=== PATIENT | female | born 1975 | race Caucasian/White ===

== ENCOUNTER 2024-02-12 23:40 | Inpatient (IN) | payer BC, SELFPAY ==
[2024-02-12 17:16] VITALS: BP 120/86
[2024-02-12 17:36] LABS: % Basophils 0.3 % (0-2); % Immature Granulocytes 0.3 % (0-0.5); % Lymphocytes 3.3 % (20.5-51.1); % Monocytes 1.2 % (1.7-9.3); % Neutrophils 94.9 % (42.2-75.2); Absolute Lymphocytes 0.5 10^3/uL (1.2-3.4); Absolute Monocytes 0.2 10^3/uL (0.1-0.6); Hematocrit 38.2 % (37.0-47.0); Hemoglobin 13.8 g/dL (12.0-16.0); Mean Corp Hgb Conc. 36.1 g/dL (33.0-37.0); Mean Corpuscular Hgb 31.4 pg (27.0-31.0); Mean Platelet Volume 12.4 fL (7.4-10.4); Nucleated Red Blood Cells % 0 %; Platelet Count 228 10^3/uL (130-400); Red Blood Cell Count 4.39 10^6/uL (4.20-5.40); Red Cell Dist. Width 12.9 % (11.5-14.5); White Blood Cell Count 14.8 10^3/uL (4.8-10.8)
[2024-02-12] MEDS: ZOFRAN 4 MG IV (17:41)
[2024-02-12 17:46] LABS: HCG, Serum Qualitative Screen Negative
[2024-02-12 17:49] LABS: ALT (SGPT) 20 U/L (0-35); AST (SGOT) 27 U/L (14-36); Alkaline Phosphatase 81 U/L (38-126); Blood Urea Nitrogen 12 mg/dl (7-17); Calcium 10.3 mg/dl (8.4-10.2); Carbon Dioxide 20 mmol/L (22-30); Chloride 106 mmol/L (98-107); Glucose 140 mg/dl (70-99); Sodium 139 mmol/L (135-145); Total Bilirubin 0.7 mg/dl (0.2-1.3); Total Protein 7.5 g/dl (6.3-8.2); eGFR > 60.00
--- NOTE | 2024-02-12 18:07 | ED.GENMED ---
History of Present Illness
<Elen Santana NP - Last Filed: 02/12/24 21:50>
General
Chief Complaint: Abdominal Symptoms
Source: patient and spouse
Exam Limitations: none
Time Seen by Provider: 02/12/24 17:36
Nursing documentation reviewed up to this point in time: agreed with
History of Present Illness
History of Present Illness:
Patient to ED with complaint of n/v/d. Symptoms started this AM. Unable to eat or drink. Brought to ED by family for eval
Past History
<Elen Santana NP - Last Filed: 02/12/24 21:50>
Past History
ED Past Medical History: Psychiatric (anxiety)
ED Past Surgical History: and Orthopedic (discectomy L5-S1)
Social History
Tobacco: Smoker
Alcohol: Occasional
Drug: Marijuana
Personal:
Living: with family
Employment: Employed
Review of Systems
<Elen Santana NP - Last Filed: 02/12/24 21:50>
Review of Systems
Allergies reviewed?: Yes
All Other Systems: ROS reviewed and negative except as documented in HPI and ROS
Constitutional: Reports no symptoms
EENT: Reports no symptoms
Respiratory: Reports no symptoms
Cardiac: Reports no symptoms
ABD/GI: Reports nausea, vomiting, diarrhea and anorexia
: Reports no symptoms
Musculoskeletal: Reports no symptoms
Skin: Reports no symptoms
Neurological: Reports weakness
Psychiatric: Reports no symptoms
Phy Exam
<Elen Santana NP - Last Filed: 02/12/24 21:50>
General Physical Exam
General Presentation: moderate distress
General age: appears stated age
General Skin: warm and dry
General Habitus: normal
Pulmonary Exam
Pulmonary Exam: lungs clear and no respiratory distress
Gastrointestinal Exam
Gastrointestinal Exam: soft, no organomegaly, non distended and no cva tenderness
Palpation: generalized: Moderate tenderness
Musculoskeletal Exam
Musculoskeletal Exam: full ROM and neuro vasc intact
Skin Exam
Skin Exam: normal color, warm/dry and no rash
Psychiatric Exam
Psychiatric Exam: normal mood/affect
Course
<Elen Santana NP - Last Filed: 02/12/24 21:50>
Orders/Labs/Results
Orders:
Orders
02/12/24 17:17
Test Result ONCE
02/12/24 17:26
Complete Blood Count/With Diff Urgent
Comprehensive Metabolic Panel Urgent
HCG, Serum Qualitative Screen Urgent
Lipase Urgent
Comment: ADD ON
02/12/24 17:36
Ondansetron Injectable [Zofran] 4 mg IV NOW STA
02/12/24 17:37
Ondansetron Injectable [Zofran] 4 mg .ROUTE .STK-MED ONE
02/12/24 18:15
Add On- LAB Urgent
Tests Added?: lipase
02/12/24 18:39
Promethazine [Phenergan] 25 mg 0.9% Sodium Chloride 50 ml [Nss] 50 ml IV NOW
02/12/24 20:19
Famotidine [Pepcid] 20 mg IV NOW STA
02/12/24 21:09
CT Abd/pelvis W Iv Cont Urgent
Comment:
Reason For Exam: abdominal pain, vomiting
02/12/24 21:10
Ketorolac [Toradol] 30 mg IV NOW STA
02/12/24 21:11
Urinalysis Reflex To Culture Urgent
02/12/24 22:49
0.9% Sodium Chloride 1000 ml [Nss] 2,000 ml IV BOLUS
Diphenhydramine [Benadryl] 25 mg IV NOW STA
Pantoprazole [Protonix IV] 40 mg IV NOW STA
02/12/24 22:50
Drug Screen, Urine [Urine Drug Abuse Screen] Urgent
Abnormal Lab Results
02/12/24
17:26
WBC 14.8 H 10^3/uL
(4.8-10.8)
MCH 31.4 H pg
(27.0-31.0)
MPV 12.4 H fL
(7.4-10.4)
Absolute Neuts (auto) 14.0 H 10^3/uL
(1.4-6.5)
Absolute Lymphs (auto) 0.5 L 10^3/uL
(1.2-3.4)
Neutrophils % 94.9 H %
(42.2-75.2)
Lymphocytes % 3.3 L %
(20.5-51.1)
Monocytes % 1.2 L %
(1.7-9.3)
Carbon Dioxide 20 L mmol/L
(22-30)
Glucose 140 H mg/dl
(70-99)
Calcium 10.3 H mg/dl
(8.4-10.2)
02/12/24 17:26
02/12/24 17:26
Vital Signs
Initial and Last Documented VS:
Initial Vital Signs
Temp Pulse Resp Pulse Ox
97.7 F 80 22 95
02/12/24 17:15 02/12/24 17:15 02/12/24 17:15 02/12/24 17:15
Last Documented Vital Signs
Temp Pulse Resp BP Pulse Ox
97.7 F 75 22 134/72 99
02/12/24 17:15 02/12/24 20:32 02/12/24 20:32 02/12/24 20:32 02/12/24 20:32
Chlealt;Ayaan Ware, DO - Last Filed: 02/12/24 22:52>
Orders/Labs/Results
Orders:
Orders
02/12/24 17:17
Test Result ONCE
02/12/24 17:26
Complete Blood Count/With Diff Urgent
Comprehensive Metabolic Panel Urgent
HCG, Serum Qualitative Screen Urgent
Lipase Urgent
Comment: ADD ON
02/12/24 17:36
Ondansetron Injectable [Zofran] 4 mg IV NOW STA
02/12/24 17:37
Ondansetron Injectable [Zofran] 4 mg .ROUTE .STK-MED ONE
02/12/24 18:15
Add On- LAB Urgent
Tests Added?: lipase
02/12/24 18:39
Promethazine [Phenergan] 25 mg 0.9% Sodium Chloride 50 ml [Nss] 50 ml IV NOW
02/12/24 20:19
Famotidine [Pepcid] 20 mg IV NOW STA
02/12/24 21:09
CT Abd/pelvis W Iv Cont Urgent
Comment:
Reason For Exam: abdominal pain, vomiting
02/12/24 21:10
Ketorolac [Toradol] 30 mg IV NOW STA
02/12/24 21:11
Urinalysis Reflex To Culture Urgent
02/12/24 22:49
0.9% Sodium Chloride 1000 ml [Nss] 2,000 ml IV BOLUS
Diphenhydramine [Benadryl] 25 mg IV NOW STA
Pantoprazole [Protonix IV] 40 mg IV NOW STA
02/12/24 22:50
Drug Screen, Urine [Urine Drug Abuse Screen] Urgent
Abnormal Lab Results
02/12/24
17:26
WBC 14.8 H 10^3/uL
(4.8-10.8)
MCH 31.4 H pg
(27.0-31.0)
MPV 12.4 H fL
(7.4-10.4)
Absolute Neuts (auto) 14.0 H 10^3/uL
(1.4-6.5)
Absolute Lymphs (auto) 0.5 L 10^3/uL
(1.2-3.4)
Neutrophils % 94.9 H %
(42.2-75.2)
Lymphocytes % 3.3 L %
(20.5-51.1)
Monocytes % 1.2 L %
(1.7-9.3)
Carbon Dioxide 20 L mmol/L
(22-30)
Glucose 140 H mg/dl
(70-99)
Calcium 10.3 H mg/dl
(8.4-10.2)
02/12/24 17:26
02/12/24 17:26
Vital Signs
Initial and Last Documented VS:
Initial Vital Signs
Temp Pulse Resp Pulse Ox
97.7 F 80 22 95
02/12/24 17:15 02/12/24 17:15 02/12/24 17:15 02/12/24 17:15
Last Documented Vital Signs
Temp Pulse Resp BP Pulse Ox
97.7 F 75 22 134/72 99
02/12/24 17:15 02/12/24 20:32 02/12/24 20:32 02/12/24 20:32 02/12/24 20:32
<Ayaan Ware DO - Last Filed: 02/12/24 22:52>
*Critical Care Note
Total Time (30-74mins, 75-104mins- exclusive of procedures): Not Applicable
<Elen Santana NP - Last Filed: 02/12/24 21:50>
Update Note
Update Note:
Patient to ED wth complaint of n/v/abdominal pain since this AM. Afebrile. Given IVF and zofran on arrival without improvement. IV phenergan given and vomiting has resolved. Still complains of mid abdominal pain. CT pending.
ED Attending Note
<Elen Santana NP - Last Filed: 02/12/24 21:50>
-
Portions of this chart may have been created with voice recognition software.� Occasional wrong word or��sound alike� substitutions may have occurred due to the inherent limitations of voice recognition software.
<Ayaan Ware DO - Last Filed: 02/12/24 22:52>
ED Attending Note
Patient seen and examined by attending physician: Yes
I performed the substantive portion of visit, reviewed & personally made and approve the management plan that is documented in note by myself or ZENAIDA.: Yes
ED Attending Note:
seen with pot reliner agree with a/p
mild diffsue pain
n/v depsite muli doses of antiemeitcs
Discharge Plan
Departure
Patient Disposition: Admit
Date of Disposition: 02/12/24
Time of Disposition: 22:51
Admit to: Med/Surg
Presentation/result/management discussed w/ accepting MD/DO: Hospitalist
Patient with high blood pressure during this ER visit?: No
Condition: Fair
Covid-19: Not Applicable
Discharge Problem:
Intractable cyclical vomiting with nausea
Prescriptions:
No Action
cyclobenzaprine 10 mg tablet
10 mg PO TID PRN (Reason: back pain, spasm) Qty: 30 0RF
prednisone 50 mg tablet
50 mg PO DAILY Qty: 5 0RF
hydrocodone-acetaminophen 5-325 mg tablet
1 tab feeding tube Q6H PRN (Reason: pain) Qty: 10 0RF
Referrals:
Mary Suarez DO [Family Provider] -
Interventions
Interventions:
*Risk Screen - Suicide Last Done: 02/12/24 17:44
*General Assessment Last Done: 02/12/24 17:44
*Neglect/Abuse Screening Last Done: 02/12/24 17:44
*ED COVID-19 Vaccine History Last Done: 02/12/24 17:44
WC-Kjqthx-Qciboudwvy Assessment Last Done: 02/12/24 17:44
Discharge Date and Time
Print Language: PARAGUAYAN
[2024-02-12 18:52] LABS: Lipase 45 U/L (23-300)
[2024-02-12] MEDS: PHENERGAN 51 MG IV (19:05)
[2024-02-12] MEDS: PEPCID 20 MG IV (20:29)
[2024-02-12 20:32] VITALS: BP 134/72
[2024-02-12] MEDS: TORADOL 30 MG IV (21:15)
[2024-02-12] MEDS: PROTONIX IV 40 MG IV (22:57)
[2024-02-12] MEDS: BENADRYL 25 MG IV (22:57)
[2024-02-12] MEDS: NSS 2000 IV (22:57)
--- NOTE | 2024-02-12 22:59 | HPS.HSE ---
Family Physician
-
Family Physician: Mary Suarez
Chief Complaint
-
Nausea, vomiting, diarrhea
History of Present Illness
48-year-old female complaining of nausea, vomiting, diarrhea that started this a.m. with inability to drink. She does admit to marijuana use daily vaping. She also reports she has had hyperemesis since she was with her last child 12 years
ago. She reports she gets it every few months feels it is due to her vagus nerve although has never seen a pipe line inspector. She reports nausea vomiting and loose pudding-like stool today. She denies fever, chills, sick contacts, no recent
travel, no antibiotics, chest pain, palpitations, shortness breath, cough, abdominal pain, urinary symptoms.
Past medical history anxiety, active smoker vapes nicotine and vapes marijuana daily, section x2, discectomy L5-S1
Medical History
Past Medical History
Past Medical History: Reports Other
Additional Past Medical History:
Chronic nausea vomiting diarrhea occurs every 3 months over the past 12 years since hyperemesis with her last child
anxiety
active smoker vapes nicotine
vapes marijuana daily
section x2
discectomy L5-S1
Past Surgical History: Reports (X 2)
Social History
Tobacco: Vaping
Alcohol: None
Drug: Marijuana
Living: With Family
Family History
Family History: Not pertinent
Allergies / Home Medications
Allergies reflects when Allergies were last updated in [employer].
Home Medications with original date entered in [employer]
Allergy/Medication List:
Allergies
Allergy/AdvReac Type Severity Reaction Status Date / Time
hydromorphone [From Dilaudid] Allergy Rash Verified 10/28/22 14:28
Sulfa (Sulfonamide Allergy Unknown Verified 10/28/22 14:28
Antibiotics)
Home Medications
Lunesta 02/12/24
alprazolam 0.5 mg tablet (Xanax) 0.5 mg PO BID PRN anxiety 02/12/24
paroxetine HCl 10 mg tablet 10 mg PO DAILY 02/12/24
Review of Systems
-
History Source: Patient
A 12 point ROS was completed and negative except as noted: Yes
Constitutional: Denies Fever or Chills
EENT: Denies Tearing or Mouth Swelling
Respiratory: Denies Cough or Trouble Breathing
Cardiac: Denies Chest Pain, Diaphoresis, Palpitations or Syncope
Abdomen/GI: Reports Nausea, Vomiting and Diarrhea (Loose pudding-like brown stool); Denies Abdominal Pain, Constipated, Bloody Stools or Black Stools
: Denies Dysuria, Frequency, Flank Pain, Incontinence, Difficulty Voiding, Urgency or Bleeding
Musculoskeletal: Denies Joint Pain, Joint Swelling or Muscle Pain
Skin: Denies Itching or Rash
Neurological: Denies Dizzy, Headache or Weakness
Hematologic/Lymphatic: Reports No Symptoms
Psych: Reports Calm
Physical Exam
Vital Signs
Vital Signs
Temp Pulse Resp BP Pulse Ox
97.7 F 75 22 134/72 99
02/12/24 17:15 02/12/24 20:32 02/12/24 20:32 02/12/24 20:32 02/12/24 20:32
Physical Exam
General: Conversant and Other (Dry heaving on exam); No Fever or Chills
HEENT: NormoCephalic, Anicteric, PERRLA, [place] Conjunctivae, No Ptosis and Other (Dry oral mucosa)
Respiratory: Clear; No Wheezes, Rales or Rhonchi
Cardiac: S1/S2 and Regular Rhythm; No Murmur, Rub, Gallop or Peripheral Edema
Breast: Deferred by me
GI: Soft, Non Tender, Non Distended, Normal Bowel Sounds and No Hepatosplenomegaly
Genito-urinary: Deferred by me
Musculoskeletal: No Clubbing, No Cyanosis and No Edema
Skin: Warm and Dry; No Rash or Jaundice
Neuro: AO x 3, No Motor Deficits, Nonfocal/grossly intact and No Sensory Deficits; No DTR's Intact & Symmetrical, Slurred Speech, Facial Droop or Tremors
Psych: Calm
Laboratory Results
-
02/12/24 17:26
02/12/24 17:
Laboratory Results
Total Bilirubin 0.7 mg/dl (0.2-1.3) 02/12/24 17:
AST 27 U/L (14-36) 02/12/24 17:
ALT 20 U/L (0-35) 02/12/24 17:
Alkaline Phosphatase 81 U/L (38-126) 02/12/24 17:
Lipase 45 U/L (23-300) 02/12/24 17:
Data Reviewed
-
CT Scan: Report Reviewed by me
Lab Data: Labs Reviewed by me
Impression/Plan
-
Impression/plan:
Admit to MedSurg
#Acute colitis concern for viral versus infectious
-WBC 14.8, afebrile, normotensive
-Check stool cultures, stool WBC ESR CRP
-Consult GI
-Check UDS
-IV NSS
-IV Pepcid every 12 hours
-IV Phenergan as needed
- IV Zofran as needed
IV Toradol given in ER
IV Benadryl given in ER
-IV Levaquin, IV Flagyl
-Follow CBC, CMP
CT abdomen pelvis with IV contrast: Mild pancolitis new. (Diffuse wall
thickening of the colon concerning for colitis) simple left ovarian cyst
#Hx marijuana use-vapes daily
#History of hyperemesis secondary to daily cannabis December 2022
#Hx nicotine abuse-Vapes daily
-Cessation advised
#Hx anxiety
-Continue Xanax 0.5 mg p.o. twice daily as needed
-Continue paroxetine 10 mg daily
#Discectomy L5-S1
#History of hyperemesis with 12 years ago
DVT prophylaxis
SCDs
Full code
[2024-02-12 23:11] LABS: Urine Albumin Trace (Neg - Trace); Urine Bilirubin Negative (Negative); Urine Character Clear (Clear); Urine Color Yellow; Urine Glucose Negative (Negative); Urine Ketone 3+ (Negative); Urine Leukocyte Negative (Negative); Urine Nitrite Negative (Negative); Urine Occult Blood Negative (Negative); Urine Urobilinogen Negative (Neg - 1+)
--- NOTE | 2024-02-12 23:11 | W.PN.UPDATE ---
Addendum entered and electronically signed by Brant Kay MD 02/13/24 13:27:
Correction:
- to check stool Cx, <del>Rota</del> <del>virus,</del> Noro virus
Original Note:
Update Note
Progress Note Update
This note serves as an addendum to the H&P by information lead ZENAIDA Ayla MARIE
HPI
48F current smoker and daily marijuanna use, HX Anxiety , HX Hyperemesiscannbis syndrome seen at ER for evalauation of N/V/D
Acute nausea and vomiting
- started this AM
- unable to tolerate any POs
- stop smoking marijuana today - last smike
- had loose BMs
- denied recent ABx
- denied contact expose
- no recent travel
- denied sea food ingestion
- no prior HX IBD
Reviewed VS: unremarkable
PE
Gen: curling up and answering questions without opening eyes
HEENT: anicteric
Neck: supple
Lungs: CTA
Cor: RRR S1 s2
Abdomen: soft , NT, NG
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
MS: no edema
Psych: limited due to selectively answering
Data
WCC 14.8
Unremarkable CMP
BG 140
Ca 10.3
ESR and CRP pending
UA sent
UDS sent , pending report
CT of the abdomen and pelvis with IV contrast.
Findings suggesting mild pancolitis. New Simple left ovarian cyst. New
Last hospitalist admission:
ASSESSMENT & PLAN
Acute gastro enteritis like clinical picture
CT suggest pancolitis wit leucocytosis
DDX: Infective, inflammatory vs. but less likely Hyperemesis cannabinoid syndrome
- NEG HCG
- stool Cx, Rota virus
- ESR, CRP
- clear and IVF
- Empiric IV LVQ and IV flagyl
- GI consult
Daily marijuana use
HX Anxiety
- pending Rx reconciliation
DVT Px: SCD
Code: Full
IP MS
[2024-02-12 23:12] LABS: Erythrocyte Sed Rate 11 mm/hour (0-20)
[2024-02-12 23:28] LABS: Amphetamines Negative (Negative); Barbiturates Negative (Negative); Benzodiazepines Negative (Negative); Buprenorphine Negative (Negative); Cocaine Negative (Negative); Marijuana Positive (Negative); Methadone Negative (Negative); Methamphetamines Negative (Negative); Opiates Negative (Negative); Phencyclidine Negative (Negative); Tricyclic Antidepressants Negative (Negative)
[2024-02-12 23:29] LABS: C-Reactive Protein < 5.00 mg/L (0.0-10.00)
[2024-02-13] VITALS (7 sets, daily range): BP systolic 92–133; BP diastolic 59–75; PULSE 83; O2SAT 97; BMI 26.2; BMI 26.4
[2024-02-13] MEDS: FLAGYL 500 MG 100 IV ×3 (00:08→18:00)
[2024-02-13] MEDS: ATIVAN 0.5 MG IV (00:08)
[2024-02-13] MEDS: NSS (PRESERVATIVE FREE) 0.25 ML IV (00:09)
[2024-02-13] MEDS: NSS 1000 IV ×3 (01:21→23:10)
[2024-02-13] MEDS: LEVAQUIN 100 IV ×2 (01:21→23:10)
[2024-02-13 05:33] LABS: % Basophils 0.2 % (0-2); % Immature Granulocytes 0.6 % (0-0.5); % Lymphocytes 5.3 % (20.5-51.1); % Monocytes 4.8 % (1.7-9.3); % Neutrophils 89.1 % (42.2-75.2); Absolute Immature Granulocytes 0.1 10^3/uL (0-0.05); Absolute Lymphocytes 0.6 10^3/uL (1.2-3.4); Absolute Monocytes 0.6 10^3/uL (0.1-0.6); Absolute Neutrophils 10.7 10^3/uL (1.4-6.5); Hematocrit 32.3 % (37.0-47.0); Hemoglobin 11.2 g/dL (12.0-16.0); Mean Corp Hgb Conc. 34.7 g/dL (33.0-37.0); Mean Corpuscular Hgb 30.7 pg (27.0-31.0); Mean Corpuscular Volume 88.5 fL (81.0-99.0); Mean Platelet Volume 12.6 fL (7.4-10.4); Nucleated Red Blood Cells % 0 %; Platelet Count 164 10^3/uL (130-400); Red Blood Cell Count 3.65 10^6/uL (4.20-5.40); Red Cell Dist. Width 13.5 % (11.5-14.5)
[2024-02-13 06:06] LABS: ALT (SGPT) 15 U/L (0-35); AST (SGOT) 19 U/L (14-36); Albumin 3.7 g/dl (3.5-5.0); Alkaline Phosphatase 55 U/L (38-126); Blood Urea Nitrogen 10 mg/dl (7-17); Calcium 8.7 mg/dl (8.4-10.2); Carbon Dioxide 21 mmol/L (22-30); Chloride 111 mmol/L (98-107); Estimated Creatinine Clearance 78 ml/min; Glucose 101 mg/dl (70-99); Sodium 138 mmol/L (135-145); Total Bilirubin 0.5 mg/dl (0.2-1.3); eGFR > 60.00
--- NOTE | 2024-02-13 08:06 | CON.GI ---
Addendum entered and electronically signed by Susan Beach DO 02/13/24 16:49:
Patient seen and examined independently of CLARICE. I agree with her note with my additions below
Ebonie is a 48-year-old female with intermittent chronic episodes of nausea and vomiting requiring hospitalization and ER visits for years. Mostly in [place] where she previously lived. Also with regular marijuana use who comes in with a
similar episode but this time found to have mild diffuse colonic wall thickening despite lack of oral contrast. Otherwise with IV contrast the pancreas and gallbladder and liver. Normal with no lymphadenopathy throughout. Bowel loops are normal
in caliber.
Patient states she feels normal in between episodes. This 1 started yesterday where she felt the urge to move her bowels with significant discomfort sat on the toilet had a semiformed bowel movement then her classic epigastric pain and multiple
episodes of retching and vomiting. She gets a wave of heat and sweats during the episodes. She has some burning in her throat from the multiple episodes of vomiting but has not vomited since before admission. Currently she feels very dry and has
epigastric discomfort. On admission she has a leukocytosis of 14,000, hemoglobin 13, platelets 228. BUN 12, creatinine 0.8, negative test, lipase normal at 45
Patient states she had an endoscopy and colonoscopy in the distant past for workup of these episodes. States she did a Cologuard recently because she did not want to repeat the colonoscopy. She is not on any PPIs. Takes Paxil and Lunesta.
# Nausea, vomiting, abdominal pain with no significant diarrhea but mild pancolitis on imaging
-- More likely hyperemesis cannabis versus cyclical vomiting syndrome
-- IV hydration, antiemetics, needs outpatient follow-up
-- Discussed cessation of marijuana
--- Stool studies if she has any diarrhea, twice daily PPI for right now
Original Note:
Consultation
-
Date/Time Consultation Requested: 02/12/24 2310
Date/Time Consultation Performed: 02/13/24 0800
Requesting Provider: CLARICE Akers
Performing Provider: CLARICE Cherry, Susan Beach,
Reason for Consultation: nausea/vomiting/diarrhea, pancolitis
Medical History
Chief Complaint / HPI
History of Present Illness:
Pt is a 48yo with hx hyperemesis with childbirth requiring Zofran pump, periodic nausea and vomiting episodes requiring hospital admission for years(mostly at [facility] where she lived in past), daily marijuana use with no improvement
with period of abstinence in past, anxiety, prior , family hx colon/stomach CA in father with onset of intractable vomiting/abdominal pain and diarrhea. This episode is different from prior episodes with prolonged vomiting and some change
in stool pattern with some pudding like stools. On admission she was noted with pancolitis on Ct along with elevated WBC 14,800 and stable hbg 13.8 with some drop to 11.2 after admission. Denies any recent travel or sick contrast. She was seen by
PCP for possible UTI with abd pressure but did not start abx prior to admission. She recall EGD/colonoscopy but was non specific for prior other testing in [facility] other than symptomatic management during hospital admission.
Pt currently admits to odynophagia with sense of burning with recurrent vomiting. She has chronic GERD but on no medications. She had about 20 + episodes of vomiting since yesterday AM last episode about 8 PM 02/11. She also admits to diffuse
abdominal burning and pain. Pt also admits to 20 + lb wt loss in last 6 months with exercise. Some change in bowel habit with loose stools but no blood or black in stools. Last colonoscopy 4-5 years ago recalls as normal, EGD years ago with
[facility] in [place].
Past Medical History
Past Medical History: Psychiatric (anxiety) and Other (hyperemesis with childbirth, marijuana use, tobacco abuse )
Past Surgical History: and Orthopedic (discectomy L5-S1)
Social History
Tobacco: Former Smoker
Alcohol: Occasional (3-4 drinks per week)
Drug: Marijuana
Personal:
Living: With Family
Employment: Employed
Family History
Family History: Other (father with multiple GI cancers including colon and stomach CA )
Allergies / Home Medications
Allergy/AdvReac Type Severity Reaction Status Date / Time
hydromorphone [From Dilaudid] Allergy Rash Verified 10/28/22 14:28
Sulfa (Sulfonamide Allergy Unknown Verified 10/28/22 14:28
Antibiotics)
�Medication �Instructions �Recorded
Lunesta 02/12/24
alprazolam 0.5 mg tablet (Xanax) 0.5 mg PO BID PRN anxiety 02/12/24
paroxetine HCl 10 mg tablet 10 mg PO DAILY 02/12/24
Review of Systems
-
History Source: Patient
Constitutional: Reports Weight Loss (20 lb last 6 months with exercise )
EENT: Reports No Symptoms
Respiratory: Reports No Symptoms
Cardiac: Reports Chest Pain
Abdomen/GI: Reports Abdominal Pain, Nausea, Vomiting and Diarrhea
: Reports Other (pressure)
Musculoskeletal: Reports No Symptoms
Skin: Reports No Symptoms
Neurological: Reports Weakness
Endocrine: Reports No Symptoms
Hematologic/Lymphatic: Reports No Symptoms
Vital Signs
Temp Pulse Resp BP Pulse Ox
99.7 F 91 14 109/64 100
02/13/24 05:09 02/13/24 05:09 02/13/24 05:09 02/13/24 05:09 02/13/24 05:09
Physical Exam
Exam
General: Well Developed and Well Nourished
HEENT: Normocephalic and Anicteric
Respiratory: Clear
Cardiac: Regular Rhythm
GI: Soft, Non Distended and Tender (diffuse )
Musculoskeletal: No Clubbing and No Cyanosis
Skin: Warm and Dry
Neuro: Awake, Alert and AO x 3
Psych: Calm
Results
WBC 12.0 10^3/uL (4.8-10.8) H 02/13/24 05:06
Hgb 11.2 g/dL (12.0-16.0) L 02/13/24 05:06
Hct 32.3 % (37.0-47.0) L 02/13/24 05:06
MCV 88.5 fL (81.0-99.0) 02/13/24 05:06
Plt Count 164 10^3/uL (130-400) D 02/13/24 05:06
Absolute Neuts (auto) 10.7 10^3/uL (1.4-6.5) H 02/13/24 05:06
Sodium 138 mmol/L (135-145) 02/13/24 05:06
Potassium 4.0 mmol/L (3.5-5.1) 02/13/24 05:06
Chloride 111 mmol/L (98-107) H 02/13/24 05:06
Carbon Dioxide 21 mmol/L (22-30) L 02/13/24 05:06
BUN 10 mg/dl (7-17) 02/13/24 05:06
Creatinine 0.8 mg/dL (0.6-1.0) 02/13/24 05:06
Calcium 8.7 mg/dl (8.4-10.2) D 02/13/24 05:06
Total Bilirubin 0.5 mg/dl (0.2-1.3) 02/13/24 05:06
AST 19 U/L (14-36) 02/13/24 05:06
ALT 15 U/L (0-35) 02/13/24 05:06
Alkaline Phosphatase 55 U/L (38-126) 02/13/24 05:06
Lipase 45 U/L (23-300) 02/12/24 17:26
Diagnostic Image Results: 02/12/24 CT A/p with IV contrast-- Findings suggesting mild pancolitis. New Simple left ovarian cyst. New
Prior GI Procedures:
EGD: years ago Jared recalls as normal
Colonoscopy: 4-5 years ago recalls as normal
Assessment / Plan
-
Pt is a 48yo with hx hyperemesis with childbirth requiring Zofran pump, periodic nausea and vomiting episodes requiring hospital admission for years(mostly at [facility] where she lived in past), daily marijuana use with no improvement
with period of abstinence in past, anxiety, prior , family hx colon/stomach CA in father with onset of intractable vomiting/abdominal pain and diarrhea. This episode is different from prior episodes with prolonged vomiting and some change
in stool pattern with some pudding like stools. On admission she was noted with pancolitis on Ct along with elevated WBC 14,800 and stable hbg 13.8 with some drop after admission. She recall EGD/colonoscopy but was non specific for prior other
testing in [facility] other than symptomatic management during hospital admission. Pt also admits to recent wt loss some intentional loss 20 lbs. Last colonoscopy 4-5 years ago recalls as normal, EGD years ago with Dr. Burr in [place].
-acute on chronic intractable nausea and vomiting
-pancolitis on CT
-leukocytosis
-anemia after admission
-daily Marijuana use
-recent wt loss
other medical problems:
-hyperemesis with with need for Zofran pump
-anxiety
-
-family hx colon/stomach CA in father
PLAN:
etiology of intractable nausea and vomiting related to infectious etiology with current noted pancolitis, Cannibis use, anxiety vs other
cont abx with current pancolitis
check stool studies and norovirus
obtain prior records from [facility]
trend hbg and WBC's
add ESR, CRP for baseline though may be elevated with infectious process, check fecal sunny
trial clear diet as no vomiting last 10+ hours
OP followup - sent message to office to arrange
consider repeat OP colonoscopy with pancolitis as due for follow up with family hx colon CA-- may need sutab as pt states she only had enema prep in past as intolerant of any liquid preps
discussed another trial of Marijuana abstinence with recurrent symptoms
will follow
-
-
Thank you for consultation and allowing me to participate in the patient's care. Please call the concrete journeyman GI physician during the after hours with any questions or concerns.
[2024-02-13] MEDS: PEPCID 20 MG IV ×2 (08:49→20:00)
[2024-02-13] MEDS: NSS (PRESERVATIVE FREE) 8 ML IV ×2 (08:49→19:58)
[2024-02-13] MEDS: PAXIL 30 MG PO (08:50)
--- NOTE | 2024-02-13 12:06 | W.PN.HOSP.TC ---
Today's Communication/Plan
-
Monitor vital signs and see plan
Monitor on clears
Stool studies
Check norovirus
Monitor leukocytosis
Continue with antibiotics for now
Assessment / Plan
Assessment / Plan
General: Conversant and Other (Dry heaving on exam); No Fever or Chills
HEENT: NormoCephalic, Anicteric, PERRLA, [place] Conjunctivae, No Ptosis and Other (Dry oral mucosa)
Respiratory: Clear; No Wheezes
Cardiac: S1/S2 and Regular Rhythm
GI: Soft, Non Tender, Non Distended, Normal Bowel Sounds
Genito-urinary: no hall
Musculoskeletal: No Edema
Neuro: AO x 3, No Motor Deficits, Nonfocal/grossly intact
Psych: Calm
Acute colitis concern for viral versus infectious
-Check stool cultures, stool WBC ESR CRP. Check norovirus
GI following
UDS with + THC
-Check UDS
-IV NSS
-IV Pepcid every 12 hours
-IV Phenergan as needed
check ekg for Qtc
cw lev and flagyl for now
CT abdomen pelvis with IV contrast: Mild pancolitis new. (Diffuse wall
thickening of the colon concerning for colitis) simple left ovarian cyst
#Hx marijuana use-vapes daily
#History of hyperemesis secondary to daily cannabis December 2022
#Hx nicotine abuse-Vapes daily
-Cessation advised
#Hx anxiety
-Continue Xanax 0.5 mg p.o. twice daily as needed
-Continue paroxetine 10 mg daily
#Discectomy L5-S1
#History of hyperemesis with 12 years ago
DVT prophylaxis
SCDs
Full code
Anticipated Discharge: 24 - 48 hours
Subjective/Interval History
-
Date of Service: February 13, 2024
Has abdominal discomfort
Objective Data
-
Labs:
Laboratory Results
02/13/24
05:06
WBC 12.0 H
Hgb 11.2 L
Hct 32.3 L
Plt Count 164 D
Sodium 138
Potassium 4.0
Chloride 111 H
Carbon Dioxide 21 L
BUN 10
Creatinine 0.8
Glucose 101 H
Calcium 8.7 D
Total Bilirubin 0.5
AST 19
ALT 15
Alkaline Phosphatase 55
Vital Signs:
Vital Signs
Temp Pulse Resp BP Pulse Ox
99.7 F 91 14 109/64 100
02/13/24 05:09 02/13/24 05:09 02/13/24 05:09 02/13/24 05:09 02/13/24 09:56
[2024-02-13 12:53] LABS: Erythrocyte Sed Rate 11 mm/hour (0-20)
[2024-02-13] MEDS: NSS IV (16:16)
[2024-02-13] MEDS: PROTONIX IV 40 MG IV (20:09)
[2024-02-13] MEDS: NSS (PRESERVATIVE FREE) 10 ML IV (20:09)
[2024-02-13] MEDS: ZOFRAN ODT (ORALLY DISINTEGRATING) PO (21:20)
[2024-02-13] MEDS: PHENERGAN 50.5 MG IV (21:35)
[2024-02-13] MEDS: ZOFRAN ODT (ORALLY DISINTEGRATING) 4 MG PO (23:12)
--- NOTE | 2024-02-14 00:04 | PTCARENOTE ---
Upon routine rounds patient drowsy but arousable to voice. Dinner tray with clear liquids eaten 100%. IVF as ordered. HRR, breath sounds CTA, Abdomen with hypo BS x 4, no BM so far this shift. Around 21:00 Patient started with nausea then
violent retching. IV Phenergan as ordered with some relief but patient continued with some dry heaves and nausea. Zofran as per order. Patient currently sleeping quietly. IVF and IV Abx as ordered.
[2024-02-14] MEDS: FLAGYL 500 MG 100 IV ×2 (00:40→07:43)
[2024-02-14 06:14] VITALS: BMI 24.2
[2024-02-14] MEDS: NSS 1000 IV (06:17)
[2024-02-14 07:10] VITALS: BP 126/66
[2024-02-14] MEDS: PAXIL 30 MG PO (07:42)
[2024-02-14] MEDS: PEPCID 20 MG IV (07:43)
[2024-02-14] MEDS: NSS (PRESERVATIVE FREE) 8 ML IV (07:43)
[2024-02-14] MEDS: NSS (PRESERVATIVE FREE) 10 ML IV (07:43)
[2024-02-14] MEDS: PROTONIX IV 40 MG IV (07:43)
[2024-02-14 08:00] LABS: % Basophils 0.4 % (0-2); % Immature Granulocytes 0.6 % (0-0.5); % Lymphocytes 7.1 % (20.5-51.1); % Monocytes 4.3 % (1.7-9.3); % Neutrophils 87.6 % (42.2-75.2); Absolute Immature Granulocytes 0.1 10^3/uL (0-0.05); Absolute Lymphocytes 0.6 10^3/uL (1.2-3.4); Absolute Monocytes 0.3 10^3/uL (0.1-0.6); Absolute Neutrophils 6.9 10^3/uL (1.4-6.5); Hematocrit 32.4 % (37.0-47.0); Hemoglobin 11.2 g/dL (12.0-16.0); Mean Corp Hgb Conc. 34.6 g/dL (33.0-37.0); Mean Corpuscular Hgb 30.6 pg (27.0-31.0); Mean Corpuscular Volume 88.5 fL (81.0-99.0); Mean Platelet Volume 12.9 fL (7.4-10.4); Nucleated Red Blood Cells % 0 %; Platelet Count 134 10^3/uL (130-400); Red Blood Cell Count 3.66 10^6/uL (4.20-5.40); Red Cell Dist. Width 13.4 % (11.5-14.5); White Blood Cell Count 7.9 10^3/uL (4.8-10.8)
[2024-02-14 08:23] LABS: ALT (SGPT) 16 U/L (0-35); AST (SGOT) 21 U/L (14-36); Albumin 3.4 g/dl (3.5-5.0); Alkaline Phosphatase 54 U/L (38-126); Blood Urea Nitrogen 9 mg/dl (7-17); Calcium 8.6 mg/dl (8.4-10.2); Carbon Dioxide 21 mmol/L (22-30); Chloride 111 mmol/L (98-107); Estimated Creatinine Clearance 89 ml/min; Glucose 100 mg/dl (70-99); Potassium 3.6 mmol/L (3.5-5.1); Sodium 137 mmol/L (135-145); Total Bilirubin 0.5 mg/dl (0.2-1.3); Total Protein 5.4 g/dl (6.3-8.2); eGFR > 60.00
--- NOTE | 2024-02-14 11:34 | CM ---
Patient seen bedside.
Patient lives with spouse and children.
patient has a 2 story home.
No assistive devices.
Independent prior to admission.
Patient drives.
No home care needs anticiapted.
PCP; Dr Suarez
Pharmacy: [facility]
Plan: home no needs anticipated.
--- NOTE | 2024-02-14 14:37 | W.DS.TRANS ---
DC Summary - [employer]
-
Discharge Instructions:
Discharge Diagnosis/Procedures Nausea and vomiting
Diet Regular
Instructions:
Stand-Alone Forms:
Changes to Home Medications: No
Discharge Medications:
DC Medications w/original date entered in [employer]
alprazolam 0.5 mg tablet (Xanax) 0.5 mg PO BID PRN anxiety 02/12/24
eszopiclone 3 mg tablet (Lunesta) 3 mg PO HSPRN PRN sleep 02/12/24
paroxetine HCl 10 mg tablet 30 mg PO DAILY 02/12/24
pantoprazole 40 mg tablet,delayed release (Protonix) 40 mg PO DAILY #30 tabs 02/14/24
Home Medication Changes
Pending Results: No
[2024-02-14 15:15] VITALS: BP 122/64
--- NOTE | 2024-02-14 15:30 | PTCARENOTE ---
Pt still w/ poor appetite but tolerating phillip kathy and crackers. Dry heaves this morning that was relieved by hot shower. No vomiting. No diarrhea in 2 days.
== END 2024-02-14 16:40 | disposition home or self-care (01) | DRG 392 ==
LOC: 4 WEST ACU 23:40
PROVIDERS: Clinical Nurse Specialist Family Health; Emergency Medicine; Nurse Practitioner; ADMITTING PHYSICIAN Internal Medicine; ATTENDING PHYSICIAN Internal Medicine; CONSULT PHYSICIAN Internal Medicine; EMERGENCY PHYSICIAN Emergency Medicine; FAMILY PHYSICIAN Family Medicine
DX: R11.2 Nausea with vomiting, unspecified (principal); K21.9 Gastro-esophageal reflux disease without esophagitis; F41.9 Anxiety disorder, unspecified; F12.90 Cannabis use, unspecified, uncomplicated; F17.290 Nicotine dependence, other tobacco product, uncomplicated; R93.5 Abnormal findings on diagnostic imaging of other abdominal regions, including retroperitoneum; R10.9 Unspecified abdominal pain; Z80.0 Family history of malignant neoplasm of digestive organs
CPT/HCPCS: 74177; 80053; 80306; 81003; 83690; 84703; 85025; 85652; 86140; 93005; 96361; 96365; 96375; 97166; 99285; 99406; Q9967

== ENCOUNTER 2024-07-27 17:58 | Inpatient (IN) | payer BC, SELFPAY ==
[2024-07-27 13:19] VITALS: BP 111/65
--- NOTE | 2024-07-27 13:40 | ED.GENMED ---
History of Present Illness
General
Chief Complaint: Abdominal Symptoms
Source: patient and records
Exam Limitations: none
Time Seen by Provider: 07/27/24 13:25
History of Present Illness
History of Present Illness:
48yoF with a history of cyclic vomiting and marijuana use presenting with her for evaluation of vomiting. Symptoms have been ongoing for about 4 days. She is also having some diarrhea and abdominal pain. She also reports having difficulty
controlling her body temperature. She denies any known trigger to her symptoms. Specifically, she denies any suspicious food intake or sick contacts. Patient has similar episodes every few months. She was admitted in February 2024 for similar symptoms.
Per gastroenterology notes, symptoms were thought to be from hyperemesis cannabis vs. cyclic vomiting syndrome. Patient states she knows that her symptoms are not from marijuana as she has not used any in the past week. No hematochezia.
Past History
Past History
ED Past Medical History: Psychiatric (anxiety)
ED Past Surgical History: and Orthopedic (discectomy L5-S1)
Social History
Tobacco: Smoker
Alcohol: Occasional
Drug: Marijuana
Personal:
Living: with family
Employment: Employed
Phy Exam
Physical Exam
Physical Exam:
Violently retching on exam
General Physical Exam
General Presentation: well appearing and moderate distress
General Skin: warm and dry
General Habitus: normal
General Mental: alert
ENT Exam
ENT Exam: normocephalic
Pulmonary Exam
Pulmonary Exam: lungs clear, no respiratory distress, no rales and no crackles
Gastrointestinal Exam
Gastrointestinal Exam: soft, non distended and other (+Mild generalized tenderness noted. Abdomen soft, non-distended. No rebound or guarding. )
Neurological Exam
Neurological Exam: alert
Stephanie Coma Scale
Eye Opening: Spontaneous
Verbal Response: Oriented
Motor Response: Obeys Commands
GCS Total Score: 15
Skin Exam
Skin Exam: normal color and warm/dry
Course
Orders/Labs/Results
Orders:
Orders
07/27/24 13:30
0.9% Sodium Chloride 1000 ml [Nss] 1,000 ml IV BOLUS
Famotidine [Pepcid] 20 mg IV NOW STA
Haloperidol Lactate [Haldol] 5 mg IM NOW STA
07/27/24 13:31
Electrocardiogram (*1) Urgent
Reason for Study: Abdominal Pain
EKG- Treatment ONCE
Test Result ONCE
07/27/24 13:57
Complete Blood Count/With Diff Urgent
Comprehensive Metabolic Panel Urgent
HCG, Serum Qualitative Screen Urgent
Lipase Urgent
Magnesium Urgent
07/27/24 16:00
Diphenhydramine [Benadryl] 25 mg IV NOW STA
Ketorolac [Toradol] 15 mg IV NOW STA
Metoclopramide [Reglan] 10 mg IV NOW STA
07/27/24 16:11
COVID-19 Antigen Urgent
Source: Nasal Swab
Influenza A+B Rapid Molecular Urgent
JOSEPH Source: Nasal Swab
Specimen Description:
Abnormal Lab Results
07/27/24
13:57
MCH 31.1 H pg
(27.0-31.0)
MPV 12.0 H fL
(7.4-10.4)
Absolute Neuts (auto) 8.3 H 10^3/uL
(1.4-6.5)
Absolute Lymphs (auto) 0.5 L 10^3/uL
(1.2-3.4)
Neutrophils % 86.4 H %
(42.2-75.2)
Lymphocytes % 5.1 L %
(20.5-51.1)
Glucose 145 H mg/dl
(70-99)
07/27/24 13:57
07/27/24 13:57
Vital Signs
Temp: 98.6 F (oral)
Initial and Last Documented VS:
Initial Vital Signs
Pulse Resp BP Pulse Ox
96 18 111/65 96
07/27/24 13:19 07/27/24 13:19 07/27/24 13:19 07/27/24 13:19
Last Documented Vital Signs
Temp Pulse Resp BP Pulse Ox
98.6 F 82 18 125/67 96
07/27/24 16:03 07/27/24 16:16 07/27/24 16:16 07/27/24 16:16 07/27/24 13:19
MDM/Problems Addressed
Differential Diagnosis Includes:
48yoF here with vomiting x 4 days. Similar episodes every few months. Last marijuana use 1 week ago. VSS. Patient violently retching on exam. Mild generalized tenderness noted on abdominal exam without signs of peritonitis. Differential diagnosis
includes but is not limited to: cannabinoid hyperemesis syndrome, cyclic vomiting syndrome, dehydration, CEDRIC
Initial ED plan: Check abdominal labs, magnesium, HCG, and EKG. IM Haldol, Pepcid, and fluid bolus for symptoms.
*EKG
Interpreted by ED Provider?: Yes
EKG Intrepretation Date: 07/27/24
Heart Rate: 82
Rate: normal
Rhythm: sinus
[place]: normal axis
Interval: normal interval and normal QT interval (436)
QRS Pattern: normal QRS
Ischemia: no ischemia
*Critical Care Note
Total Time (30-74mins, 75-104mins- exclusive of procedures): Not Applicable
Update Note
Update Note:
Labs overall unremarkable including normal white count, electrolytes, renal function. COVID/flu testing added which are negative. Patient received Reglan and Benadryl for persistent symptoms. On multiple reassessments, she reports no improvement
with medications. Will admit for intractable symptoms.
ED Attending Note
-
Portions of this chart may have been created with voice recognition software.� Occasional wrong word or��sound alike� substitutions may have occurred due to the inherent limitations of voice recognition software.
Discharge Plan
Departure
Patient Disposition: Admit
Date of Disposition: 07/27/24
Time of Disposition: 17:10
Presentation/result/management discussed w/ accepting MD/DO: Hospitalist
Discharge Problem:
Intractable nausea and vomiting
Prescriptions:
No Action
paroxetine HCl 10 mg Tablet
30 mg PO DAILY
alprazolam [Xanax] 0.5 mg Tablet
0.5 mg PO BID PRN (Reason: anxiety)
eszopiclone [Lunesta] 3 mg Tablet
3 mg PO HSPRN PRN (Reason: sleep)
pantoprazole [Protonix] 40 mg tablet,delayed release (DR/EC)
40 mg PO DAILY Qty: 30 0RF
Referrals:
Mary Suarez DO [Family Provider] -
Interventions
Interventions:
*Risk Screen - Suicide Last Done: 07/27/24 13:19
*General Assessment Last Done: 07/27/24 13:19
*Neglect/Abuse Screening Last Done: 07/27/24 13:19
*ED COVID-19 Vaccine History Last Done: 07/27/24 14:30
XZ-Tlkusm-Vpjyzvzyew Assessment Last Done: 07/27/24 14:31
Discharge Date and Time
Print Language: TAMAZIGHT
[2024-07-27] MEDS: NSS 1000 IV ×2 (13:54→21:29)
[2024-07-27] MEDS: PEPCID 20 MG IV (13:55)
[2024-07-27] MEDS: HALDOL 5 MG IM (13:55)
[2024-07-27 14:07] LABS: % Basophils 0.4 % (0-2); % Eosinophils 1.6 % (0-6); % Immature Granulocytes 0.4 % (0-0.5); % Lymphocytes 5.1 % (20.5-51.1); % Monocytes 6.1 % (1.7-9.3); % Neutrophils 86.4 % (42.2-75.2); Absolute Eosinophils 0.2 10^3/uL (0-0.7); Absolute Lymphocytes 0.5 10^3/uL (1.2-3.4); Absolute Monocytes 0.6 10^3/uL (0.1-0.6); Absolute Neutrophils 8.3 10^3/uL (1.4-6.5); Hematocrit 40.7 % (37.0-47.0); Hemoglobin 14.7 g/dL (12.0-16.0); Mean Corp Hgb Conc. 36.1 g/dL (33.0-37.0); Mean Corpuscular Hgb 31.1 pg (27.0-31.0); Mean Corpuscular Volume 86.2 fL (81.0-99.0); Nucleated Red Blood Cells % 0 %; Platelet Count 228 10^3/uL (130-400); Red Blood Cell Count 4.72 10^6/uL (4.20-5.40); Red Cell Dist. Width 12.5 % (11.5-14.5); White Blood Cell Count 9.6 10^3/uL (4.8-10.8)
[2024-07-27 14:19] LABS: HCG, Serum Qualitative Screen Negative
[2024-07-27 14:38] LABS: ALT (SGPT) 25 U/L (0-35); AST (SGOT) 32 U/L (14-36); Albumin 4.8 g/dl (3.5-5.0); Alkaline Phosphatase 81 U/L (38-126); Blood Urea Nitrogen 12 mg/dl (7-17); Carbon Dioxide 23 mmol/L (22-30); Chloride 103 mmol/L (98-107); Glucose 145 mg/dl (70-99); Lipase 61 U/L (23-300); Potassium 3.8 mmol/L (3.5-5.1); Sodium 138 mmol/L (135-145); Total Bilirubin 0.8 mg/dl (0.2-1.3); Total Protein 7.7 g/dl (6.3-8.2); eGFR > 60.00
[2024-07-27] MEDS: BENADRYL 25 MG IV (16:12)
[2024-07-27] MEDS: REGLAN 10 MG IV (16:12)
[2024-07-27] MEDS: TORADOL 15 MG IV ×2 (16:12→21:33)
[2024-07-27 16:16] VITALS: BP 125/67
[2024-07-27 17:00] LABS: COVID-19 Antigen Negative (Negative)
--- NOTE | 2024-07-27 17:13 | HPS.HSE ---
Family Physician
-
Family Physician: Mary Suarez
Chief Complaint
-
n/v/d
History of Present Illness
48yoF with a history of cyclic vomiting and marijuana use, GERD, anxiety presented to us with nausea, vomiting, diarrhea for past 4 days.patient stated multiple episodes of loose watery stool and vomiting every day. She stated very poor appetite.
Denied any blood in the stool or vomit. Patient stated headache . Denied fever, chills, chest pain, short of breath. Specifically, she denies any suspicious food intake or sick contacts. Denies dysuria, hematuria.
Patient received Benadryl, Pepcid, Haldol, Toradol, Reglan, normal saline in the ER. Admitting for further management
Medical History
Past Medical History
Past Medical History: Reports Other
Additional Past Medical History:
Chronic nausea vomiting diarrhea occurs every 3 months over the past 12 years since hyperemesis with her last child
anxiety
active smoker vapes nicotine
vapes marijuana daily
section x2
discectomy L5-S1
Past Surgical History: Reports Other
Additional Past Surgical History:
x 2
Social History
Tobacco: Vaping
Alcohol: Occasional
Drug: Marijuana (Last week)
Personal:
Living: With Family
Family History
Family History: Not pertinent
Allergies / Home Medications
Allergies reflects when Allergies were last updated in [employer].
Home Medications with original date entered in [employer]
Allergy/Medication List:
Allergies
Allergy/AdvReac Type Severity Reaction Status Date / Time
hydromorphone [From Dilaudid] Allergy Rash Verified 07/27/24 13:19
Sulfa (Sulfonamide Allergy Unknown Verified 07/27/24 13:19
Antibiotics)
Home Medications
alprazolam 0.5 mg tablet (Xanax) 0.5 mg PO TIDPRN PRN anxiety 02/12/24
eszopiclone 3 mg tablet (Lunesta) 3 mg PO HSPRN PRN sleep 02/12/24
pantoprazole 40 mg tablet,delayed release (Protonix) 40 mg PO DAILY #30 tabs 02/14/24
paroxetine HCl 30 mg tablet 30 mg PO DAILY 07/27/24
Review of Systems
-
Constitutional: Reports No Symptoms
EENT: Reports No Symptoms
Respiratory: Reports No Symptoms
Cardiac: Reports No Symptoms
Abdomen/GI: Reports Abdominal Pain, Nausea, Vomiting and Diarrhea
: Reports No Symptoms
Musculoskeletal: Reports No Symptoms
Skin: Reports No Symptoms
Neurological: Reports No Symptoms
Endocrine: Reports No Symptoms
Hematologic/Lymphatic: Reports No Symptoms
Psych: Reports No Symptoms
Physical Exam
Vital Signs
Vital Signs
Temp Pulse Resp BP Pulse Ox
98.6 F 82 18 125/67 96
07/27/24 16:03 07/27/24 16:16 07/27/24 16:16 07/27/24 16:16 07/27/24 13:19
Physical Exam
General: Well Developed, Well Nourished and No Apparent Distress
HEENT: NormoCephalic, Moist mucous membranes and Atraumatic
Respiratory: Clear
Cardiac: S1/S2 and Regular Rhythm; No Murmur or Rub
GI: Soft, Non Distended, Normal Bowel Sounds and Tender; No Organomegaly
Rectal: Deferred by Provider
Musculoskeletal: No Clubbing, No Cyanosis and No Edema
Skin: No Rash
Neuro: AO x 3 and Nonfocal/grossly intact
Psych: Calm
Laboratory Results
-
07/27/24 13:57
07/27/24 13:57
Laboratory Results
Total Bilirubin 0.8 mg/dl (0.2-1.3) 07/27/24 13:57
AST 32 U/L (14-36) 07/27/24 13:57
ALT 25 U/L (0-35) 07/27/24 13:57
Alkaline Phosphatase 81 U/L (38-126) 07/27/24 13:57
Lipase 61 U/L (23-300) 07/27/24 13:57
Data Reviewed
-
Lab Data: Labs Reviewed by me
Impression/Plan
-
# Intractable nausea vomiting/diarrhea likely gastroenteritis
#hxt of hyperemesis syndrome
-IV Zofran as needed for nausea vomiting
- PPI continued
-Full liquid diet, advance as tolerated
-stool for culture, norovirus, c diff
-Toradol prn for pain
##Hx anxiety
-Continue Xanax 0.5 mg as needed
-Continue paroxetine 30 mg daily
#Discectomy L5-S1
#History of hyperemesis with 12 years ago
DVT prophylaxis
SCDs
--- NOTE | 2024-07-27 17:40 | W.PN.UPDATE ---
Update Note
Progress Note Update
HPI: 48 yo F with history of cyclic vomiting 2/2 marijuana use, GERD, anxiety; presented with nausea, vomiting, diarrhea for ~ 4 days.
Pt stated multiple episodes of loose watery stool and vomiting with poor appetite. Denied any blood in the stool or vomit.
Denied to fever, chills, chest pain, short of breath. No sick contacts.
Patient received Benadryl, Pepcid, Haldol, Toradol, Reglan, normal saline in the ER.
A/P:
# Intractable nausea, vomiting, diarrhea possible viral gastroenteritis
# h/o hyperemesis syndrome
IV Zofran as needed for nausea vomiting
PPI continued
Full liquid diet, advance as tolerated
IVF support with NSS
Check stool for culture, norovirus, c diff
Toradol prn for pain
# Hx anxiety
Continue Xanax 0.5 mg as needed
Continue paroxetine 30 mg daily
# Discectomy L5-S1
# History of hyperemesis with 12 years ago
DVT prophylaxis: SCDs
FC
[2024-07-27 19:50] VITALS: BP 108/57
[2024-07-27] MEDS: ZOFRAN 4 MG IV (21:33)
[2024-07-27 23:58] VITALS: BP 113/60
[2024-07-28 00:13] VITALS: BMI 25.2
[2024-07-28 01:24] VITALS: BP 124/64; BMI 24.8
--- NOTE | 2024-07-28 01:30 | PTCARENOTE ---
Pt arrived to [facility] from ED. VSS, pt reports epigastric pain and nausea. PRN Xanax and melatonin provided. Pt oriented to room, call perez within reach.
[2024-07-28] MEDS: MELATONIN 5 MG PO (01:37)
[2024-07-28] MEDS: XANAX 0.5 MG PO (01:37)
[2024-07-28] MEDS: NSS 1000 IV ×2 (06:48→16:14)
[2024-07-28] MEDS: PROTONIX 40 MG PO (07:44)
[2024-07-28 07:47] VITALS: BP 114/57
[2024-07-28 08:19] LABS: Hematocrit 34.9 % (37.0-47.0); Hemoglobin 11.9 g/dL (12.0-16.0); Mean Corp Hgb Conc. 34.1 g/dL (33.0-37.0); Mean Corpuscular Hgb 30.6 pg (27.0-31.0); Mean Corpuscular Volume 89.7 fL (81.0-99.0); Mean Platelet Volume 12.6 fL (7.4-10.4); Platelet Count 178 10^3/uL (130-400); Red Blood Cell Count 3.89 10^6/uL (4.20-5.40); White Blood Cell Count 6.1 10^3/uL (4.8-10.8)
--- NOTE | 2024-07-28 08:35 | W.PN.HOSP.TC ---
Today's Communication/Plan
-
see A/P
Assessment / Plan
Assessment / Plan
HPI: 48 yo F with history of cyclic vomiting 2/2 marijuana use, GERD, anxiety; presented with nausea, vomiting, diarrhea for ~ 4 days.
Pt stated multiple episodes of loose watery stool and vomiting with poor appetite. Denied any blood in the stool or vomit.
Denied to fever, chills, chest pain, short of breath. No sick contacts.
A/P:
# Intractable nausea, vomiting, diarrhea; likely cyclic emesis syndrome from marijuana, less likely viral gastroenteritis with no further diarrhea
# h/o hyperemesis syndrome
UDS positive for marijuana
encourage hot shower
trial of lidocaine cream to apply over abdomen
IV Zofran as needed for nausea/vomiting
PPI continued
Full liquid diet, advance as tolerated
IVF support with NSS due to current poor appetite
No further diarrhea hence has not collected stool for stool culture, norovirus, c diff
Toradol prn for pain
# Hx anxiety
Continue Xanax 0.5 mg as needed
Continue paroxetine 30 mg daily
# Discectomy L5-S1
# History of hyperemesis with 12 years ago
DVT prophylaxis: SCDs
FC
Anticipated Discharge: 24 - 48 hours
Subjective/Interval History
-
Date of Service: July 28, 2024
Objective Data
-
Labs:
Laboratory Results
07/28/24
06:48
WBC 6.1
Hgb 11.9 L
Hct 34.9 L
Plt Count 178 D
Sodium Pending
Potassium Pending
Chloride Pending
Carbon Dioxide Pending
BUN Pending
Creatinine Pending
Glucose Pending
Calcium Pending
Vital Signs:
Vital Signs
Temp Pulse Resp BP Pulse Ox
37.1 C 54 20 114/57 97
07/28/24 07:47 07/28/24 07:47 07/28/24 07:47 07/28/24 07:47 07/28/24 07:47
I&O
07/27/24 07/28/24 07/29/24
06:59 06:59 06:59
Intake Total 640 / 640
Balance 640 / 640
Review of Systems
-
Abdomen/GI: Reports Nausea; Denies Diarrhea
Physical Exam
-
General: Well Developed, Well Nourished, No Apparent Distress, Comfortable, Conversant and Other (lethargic); Negative Respiratory Distress
HEENT: Normocephalic, Atraumatic, Nose Appears Normal and Ears Appear Normal; Negative Oxygen
Respiratory: Clear to Auscultation and Non Labored Respirations; Negative Accessory Resp Muscle Use
Cardiac: Regular Rhythm and S1/S2
GI: Soft, Nontender and Nondistended
Skin: Warm and Dry
Neuro: Awake and Alert
Psych: Calm and Intact Judgement/Insight
Data Reviewed
-
Labs: Labs Reviewed by me
[2024-07-28 08:56] LABS: Blood Urea Nitrogen 18 mg/dl (7-17); Calcium 8.7 mg/dl (8.4-10.2); Carbon Dioxide 24 mmol/L (22-30); Chloride 105 mmol/L (98-107); Estimated Creatinine Clearance 89 ml/min; Glucose 107 mg/dl (70-99); Magnesium 2.2 mg/dl (1.6-2.3); Potassium 4.1 mmol/L (3.5-5.1); Sodium 139 mmol/L (135-145); eGFR > 60.00
[2024-07-28] MEDS: LMX 4 1 APPLIC TOPICAL (08:59)
[2024-07-28] MEDS: PAXIL 30 MG PO (09:00)
--- NOTE | 2024-07-28 13:31 | CM ---
Patient seen at bedside. Patient stated that she lives with her spouse and children. Patient has no DME at home, and confirmed that she has been indepenent of ADL's and IADL's. Patient plan is to return to home when she is medically stable and does
not anticipate any needs. CM will continue to follow for discharge planning needs.
Plan; home with no needs anticipated.
[2024-07-28 15:22] VITALS: BP 91/56
[2024-07-28] MEDS: TORADOL 15 MG IV (20:15)
[2024-07-28 20:42] LABS: Marijuana Positive (Negative)
[2024-07-28 20:43] LABS: Amphetamines Negative (Negative); Barbiturates Negative (Negative); Benzodiazepines Positive (Negative); Buprenorphine Negative (Negative); Cocaine Negative (Negative); Methadone Negative (Negative); Methamphetamines Negative (Negative); Opiates Negative (Negative); Phencyclidine Negative (Negative); Tricyclic Antidepressants Negative (Negative)
[2024-07-28 20:57] LABS: Fentanyl, Urine Negative (Negative)
[2024-07-28 23:30] VITALS: BP 114/62
[2024-07-29] MEDS: NSS 1000 IV (05:24)
[2024-07-29 07:00] VITALS: BP 110/67
[2024-07-29 08:28] LABS: Blood Urea Nitrogen 12 mg/dl (7-17); Calcium 8.1 mg/dl (8.4-10.2); Carbon Dioxide 27 mmol/L (22-30); Chloride 103 mmol/L (98-107); Estimated Creatinine Clearance 89 ml/min; Glucose 95 mg/dl (70-99); Magnesium 2.1 mg/dl (1.6-2.3); Potassium 3.6 mmol/L (3.5-5.1); Sodium 137 mmol/L (135-145); eGFR > 60.00
[2024-07-29 08:29] LABS: Hematocrit 31.1 % (37.0-47.0); Hemoglobin 10.8 g/dL (12.0-16.0); Mean Corp Hgb Conc. 34.7 g/dL (33.0-37.0); Mean Corpuscular Volume 89.4 fL (81.0-99.0); Mean Platelet Volume 12.5 fL (7.4-10.4); Platelet Count 131 10^3/uL (130-400); Red Blood Cell Count 3.48 10^6/uL (4.20-5.40); Red Cell Dist. Width 12.7 % (11.5-14.5); White Blood Cell Count 5.4 10^3/uL (4.8-10.8)
[2024-07-29] MEDS: PROTONIX 40 MG PO (08:34)
[2024-07-29] MEDS: PAXIL 30 MG PO (08:34)
--- NOTE | 2024-07-29 08:51 | W.PN.HOSP.TC ---
Addendum entered and electronically signed by Lisa Kelsey MD 07/29/24 12:27:
total DC time 37 min
Original Note:
Today's Communication/Plan
-
see A/P
Solid food and DC if tolerating
Assessment / Plan
Assessment / Plan
HPI: 48 yo F with history of cyclic vomiting 2/2 marijuana use, GERD, anxiety; presented with nausea, vomiting, diarrhea for ~ 4 days.
Pt stated multiple episodes of loose watery stool and vomiting with poor appetite. Denied any blood in the stool or vomit.
Denied to fever, chills, chest pain, short of breath. No sick contacts.
A/P:
# Intractable nausea, vomiting, diarrhea; likely cyclic emesis syndrome from marijuana, less likely viral gastroenteritis with no further diarrhea
# h/o hyperemesis syndrome
UDS positive for marijuana
encourage hot shower
trial of lidocaine cream to apply over abdomen has helped
IV Zofran as needed for nausea/vomiting
PPI continued
Advance full liquid diet to regular. OK for DC if tolerating solid food
No further diarrhea/BM during hospital stay hence no need to collect stool for stool culture, norovirus, c diff
# drop in Hgb likely dilutional from IVF
# Hx anxiety
Continue Xanax 0.5 mg as needed
Continue paroxetine 30 mg daily
# Discectomy L5-S1
# History of hyperemesis with 12 years ago
DVT prophylaxis: SCDs
FC
Anticipated Discharge: Today
Subjective/Interval History
-
Date of Service: July 29, 2024
Objective Data
-
Labs:
Laboratory Results
07/29/24
07:36
WBC 5.4
Hgb 10.8 L
Hct 31.1 L
Plt Count 131 D
Sodium 137
Potassium 3.6
Chloride 103
Carbon Dioxide 27
BUN 12
Creatinine 0.7
Glucose 95
Calcium 8.1 L
Vital Signs:
Vital Signs
Temp Pulse Resp BP Pulse Ox
37.4 C 90 16 110/67 97
07/29/24 07:00 07/29/24 07:00 07/29/24 07:00 07/29/24 07:00 07/29/24 07:00
I&O
07/28/24 07/29/24 07/30/24
06:59 06:59 06:59
Intake Total 640 / 640 2139
Balance 640 / 640 2139
Review of Systems
-
All other systems: Reviewed and negative
Abdomen/GI: Denies Diarrhea
Physical Exam
-
General: Well Developed, Well Nourished, No Apparent Distress, Comfortable and Conversant; Negative Respiratory Distress
HEENT: Normocephalic, Atraumatic, Nose Appears Normal and Ears Appear Normal; Negative Oxygen
Respiratory: Clear to Auscultation and Non Labored Respirations; Negative Accessory Resp Muscle Use
Cardiac: Regular Rhythm and S1/S2
GI: Soft, Nontender and Nondistended
Skin: Warm and Dry
Neuro: Awake and Alert
Psych: Calm and Intact Judgement/Insight
Data Reviewed
-
Labs: Labs Reviewed by me
[2024-07-29] MEDS: KCL 40 MEQ PO (09:11)
--- NOTE | 2024-07-29 12:17 | W.DCSUMMARY ---
Discharge Summary
Discharge Data
Date of Admission: 07/27/24
Date of Discharge: 07/29/24
-
Pending Results: No
Hospital Course
Principal Diagnosis:
Intractable nausea/vomiting/diarrhea, likely due to cyclic emesis syndrome from marijuana; less likely viral gastroenteritis with no further diarrhea during hospital stay
Chronic Diagnoses:�
Anxiety, on Xanax and paroxetine
Discectomy L5-S1
History of hyperemesis with 12 years ago
Consultations:�
None
Procedures:�
None
Clinical course:�
This is a 48-year-old female, with past medical history as stated above, who presented with intractable nausea, vomiting, and diarrhea.
Problem 1:
Intractable nausea/vomiting/diarrhea, likely due to cyclic emesis syndrome from marijuana; less likely viral gastroenteritis with no further diarrhea during hospital stay.
Her UDS was positive for marijuana.
She was treated symptomatically during her hospital stay and her symptom has much resolved.
Diet was advanced to regular which she tolerated well.
With clinical improvement, she was discharged home.
Problem 2:
Drop in Hgb from 14 (likely hemoconcentrated at that time) to 10, likely from dilutional effect from IVF.
As for the rest of her medical problems, they were stable during her hospital stay.
Discharge Plan
-
Patient Disposition: Home (Routine Discharge)
Discharge Diagnosis/Procedures: Intractable nausea/vomiting/diarrhea likely cyclic emesis syndrome
Condition: Good
Diet: As tolerated and Regular
Activity: As tolerated
Driving Restrictions: As prior to admission
Referrals:
Mary Suarez DO [Family Provider] - in less than 1 week
Prescriptions:
Continued
alprazolam [Xanax] 0.5 mg Tablet
0.5 mg PO TIDPRN PRN (Reason: anxiety)
Patient Comments:
07/27/24: last filled 06/01/24 for 30 tabs over 10 days
eszopiclone [Lunesta] 3 mg Tablet
3 mg PO HSPRN PRN (Reason: sleep)
Patient Comments:
07/27/24: last filled 07/21/24 for 30 tablets over 30 days
pantoprazole [Protonix] 40 mg tablet,delayed release (DR/EC)
40 mg PO DAILY Qty: 30 0RF
paroxetine HCl 30 mg Tablet
30 mg PO DAILY
Discharge Orders:
Discharge Patient (As Directed); Ordered 07/29/24
Ordered By: Lisa Kelsey
Discharge Date and Time
Discharge Date/Time: 07/29/24 11:12
Print Language: CHINESE
== END 2024-07-29 11:12 | disposition home or self-care (01) | DRG 395 ==
LOC: 4 WEST ACU 17:58
PROVIDERS: Physician Assistant; Registered Nurse; ADMITTING PHYSICIAN Internal Medicine; EMERGENCY PHYSICIAN Emergency Medicine; FAMILY PHYSICIAN Family Medicine
DX: R11.15 Cyclical vomiting syndrome unrelated to migraine (principal); F12.90 Cannabis use, unspecified, uncomplicated; F41.9 Anxiety disorder, unspecified; F17.290 Nicotine dependence, other tobacco product, uncomplicated; Z11.52 Encounter for screening for COVID-19; Z79.899 Other long term (current) drug therapy
CPT/HCPCS: 80048; 80053; 80306; 80307; 83690; 83735; 84703; 85025; 85027; 87502; 87811; 93005; 96361; 96372; 96374; 96375; 99285; 99406